=== PATIENT | male | born 1995 | race Caucasian/White ===

== ENCOUNTER 2016-07-23 17:44 | Emergency (ER) | payer SELFPAY ==
[~2016-07-23] VITALS: Ht 160 cm; Wt 59.0 kg
[~2016-07-23 17:44] MED LIST: BACTRIM,SEPT1 TABLET PO; CLINDAMYCIN HC300 MG PO; KEFLEX500 MG PO; LORTAB 5-325 M1 EACH PO; MOTRIN600 MG PO; NORCO 5/3251 TABLET PO
[2016-07-23] MEDS ORDERED: NORCO 5/3251 TABLET PO (18:43)
[2016-07-23 19:28] VITALS: BP 125/82
== END 2016-07-23 19:29 | disposition home or self-care (01) ==
LOC: EME 17:44
PROC: 0H94XZZ Drainage of Neck Skin, External Approach (ICD-10-PCS; principal; 2016-07-23)
DX: L02.11 Cutaneous abscess of neck (principal)
CPT/HCPCS: 99281; 99284

== ENCOUNTER 2017-11-18 12:55 | Emergency (ER) | payer SELFPAY ==
[~2017-11-18] VITALS: Ht 160 cm; Wt 57.5 kg
[2017-11-18 13:37] LABS: HEMATOCRIT 46.5 % (38.0-50.0); HEMOGLOBIN 16.3 G/DL (12.5-16.6); MCH 30.2 PG (29.0-34.0); MCHC 35.1 G/DL (30.0-36.0); MCV 86.3 FL (86-99); PLATELET COUNT 349 K/uL (156-360); RBC DIS.WIDTH-CV 11.4 % (11.8-14.6); RBC DIS.WIDTH-SD 36.2 % (39-53); RED BLOOD COUNT 5.39 M/uL (4.00-5.50); WHITE BLOOD COUNT 15.4 K/uL (4.1-10.2)
[2017-11-18 13:45] LABS: CHLORIDE 102 mEq/L (99-109); POTASSIUM 4.1 mEq/L (3.7-5.4); SODIUM 140 mEq/L (136-147)
[2017-11-18 13:47] LABS: GLUCOSE 96 mg/dL (70-99)
[2017-11-18 13:51] LABS: CREATININE 0.9 mg/dL (0.6-1.3); GFR ESTIMATE (CALCULATED) > 59 mL/min/ (58.99-99999)
[2017-11-18 13:52] LABS: UREA NITROGEN (BUN) 8 mg/dL (9-23)
[2017-11-18] MEDS ORDERED: CLEOCIN300 MG PO (16:04)
[2017-11-18 18:16] VITALS: BP 108/68
== END 2017-11-18 18:23 | disposition home or self-care (01) ==
LOC: EME 12:55
PROVIDERS: Nurse Practitioner Family
PROC: 0H94XZZ Drainage of Neck Skin, External Approach (ICD-10-PCS; principal; 2017-11-18)
DX: L02.11 Cutaneous abscess of neck (principal); L03.221 Cellulitis of neck; L72.3 Sebaceous cyst; F17.200 Nicotine dependence, unspecified, uncomplicated; Z87.2 Personal history of diseases of the skin and subcutaneous tissue; Z95.9 Presence of cardiac and vascular implant and graft, unspecified; Z98.890 Other specified postprocedural states
CPT/HCPCS: 70491; 80048; 83605; 85027; 87040; 87075; 87205; 99281; 99285; J1885; J3370; J7030